=== PATIENT | male | born 1955 | race Caucasian/White ===

== ENCOUNTER 2018-05-08 12:27 | Outpatient (CLI) | payer MEDICARE, OTHER ==
--- NOTE | 2018-05-08 17:44 | ULT ---
SCROTAL ULTRASOUND: INDICATIONS: Right hemiscrotal/testicular pain, progressive in intensity. TECHNIQUE: Matias-scale and Doppler color-flow imaging performed with spectral analysis. FINDINGS: Doppler assessment reveals flow to each testis. There is a mild generalized heterogeneous echotextur e of the testicular parenchyma, although no discrete mass. There are cysts of each epididymis, moder ate to large in size on the left and punctate in size on the right. The demonstrated right testicula r length is 3.6 cm and on the left 2.9 cm. No significant hydrocele formation. IMPRESSION: 1. No sonographic evidence of testicular torsion or intratesticular mass. 2. Mild heterogeneity of the testicular parenchyma. This could relate to an inflammatory process, s uch as orchitis, although it is nonspecific. Recommend clinical correlation. If necessary, imaging followup may be obtained for continued assessment. POS: NII
== END 2018-05-08 12:28 | disposition home or self-care (01) ==
LOC: SCSULT 12:27
PROVIDERS: ATTEND Family Medicine
DX: N50.819 Testicular pain, unspecified (principal)
CPT/HCPCS: 76870; 93976

== ENCOUNTER 2018-09-15 10:31 | Outpatient (CLI) | payer MEDICARE, OTHER ==
--- NOTE | 2018-09-15 11:55 | ULT ---
ABDOMINAL AORTIC ULTRASOUND: History: 63-year-old male, wellness exam. Screening for abdominal aortic aneurysm. FINDINGS: There are some atherosclerotic plaque changes involving the aorta. Aneurysm dilatation of the infrare nal lower abdominal aorta measuring approximately 2.3 x 2.2 cm. The bifurcation appears unremarkable. Visualized proximal right and left common iliac arteries are unremarkable. IMPRESSION: Small focal aneurysm of the distal abdominal aorta. Abdominal aortic calcific plaque evidence for ath erosclerotic aortic vascular disease. POS: NII
== END 2018-09-15 10:32 | disposition home or self-care (01) ==
LOC: SCSULT 10:31
PROVIDERS: ATTEND Family Medicine
DX: Z13.6 Encounter for screening for cardiovascular disorders (principal); Z00.00 Encounter for general adult medical examination without abnormal findings; I71.4 Abdominal aortic aneurysm, without rupture; I70.0 Atherosclerosis of aorta
CPT/HCPCS: 76775

== ENCOUNTER 2018-09-20 07:49 | Outpatient (CLI) | payer MEDICARE, OTHER ==
--- NOTE | 2018-09-20 09:41 | CT ---
CT PULMONARY LUNG SCAN: HISTORY: Low dose screening. COMPARISON: Chest radiograph from 07/23/2015. FINDINGS: LUNGS PER SCREENING-SPECIFIC (LUNG-RADS): Negative. No suspicious pulmonary nodules. POTENTIALLY SIGNIFICANT INCIDENTALS (LUNG-RADS CATEGORY S): None. Negative. No incidental findings requiring urgent additional imaging evaluation. PULMONARY INCIDENTALS: There are scattered sub-4-mm pulmonary nodules, a few of which are calcified. There is a large bulla in the right upper lobe and left upper lobe. Mild to moderate paraseptal em physema. Scarring in the lung bases. OTHER INCIDENTALS: Small posterior fat-containing diaphragmatic hernia on the left. Low grade ather osclerotic plaque of the aorta. No mediastinal adenopathy. There are small, likely reactive mediastinal lymph nodes. No right kidney is appreciated on this examination. No suspicious osteolytic or osteoblastic lesions . No acute displaced rib fracture. IMPRESSION: 1. Lung-RADS category 2-Benign appearance or behavior. Recommended follow-up CT in one year. 2. Lung-RADS category S ( Potentially significant incidentals): Negative. No new or unknown finding s requiring urgent additional evaluation. POS: [facility]
== END 2018-09-20 07:50 | disposition home or self-care (01) ==
LOC: CT 07:49
PROVIDERS: ATTEND Family Medicine
DX: F17.210 Nicotine dependence, cigarettes, uncomplicated (principal); Z12.2 Encounter for screening for malignant neoplasm of respiratory organs; Z00.00 Encounter for general adult medical examination without abnormal findings
CPT/HCPCS: G0297

== ENCOUNTER 2019-11-21 09:48 | Outpatient (CLI) | payer MEDICARE, OTHER ==
--- NOTE | 2019-11-21 11:07 | CT ---
CT of [facility] without [id number] screening protocol: 11/21/2019 COMPARISON:09/20/2018 HISTORY:Nicotine dependence, current smoker with history of smoking for 40 years TECHNIQUE: Serial axial CT imaging at1.25 mm from thethoracic inlet through upper abdomen without con trast. Coronal and sagittal reformatted imaging obtained Findings:Noncontrast enhanced imaging limits assessment of the imaged viscera, vascular structures, a nd for lymphadenopathy. Scattered centrilobular and subpleural emphysematous changes are noted with a upper lobe predominance . Imaged upper abdomen demonstrates no acute findings. There is atherosclerotic calcification of the up per abdominal aorta. No pleural, pericardial, or mediastinal fluid. Scattered atherosclerotic calcification of the ascendi ng aorta and coronary arteries. No pneumothorax noted on either side. Left upper lobe: Stable 4 mm left upper lobe pulmonary nodule on axial image 97. Stable tiny 2-3 mm n odule on image 94. Left lower lobe: There is a inferior left lower lobe nodule measuring approximately 4 mm on axial inder ge 243, stable. Right upper lobe: Stable apical pleural thickening. There is a nodule within the medial aspect of the right upper lobe on axial image 111 measuring 6 mm, stable. There is a faint tiny nodule within the right upper lobe on axial image 1:30 measuring 2-3 mm, stable. There is a right upper lobe granul aly on image 101. Stable tiny nodule on axial image 152. Right middle lobe: 2 subcentimeter nodules are noted within the superior aspect of the right middle l obe measuring up to 4 mm, grossly unchanged. Right lower lobe: No discrete/dominant pulmonary parenchymal mass lesion or nodule noted. No endobronchial lesion evident. Review of the osseous structures demonstrates no worrisome findings. IMPRESSION: Lung RADS category 2-benign appearance or behavior. Recommend follow-up low-dose chest CT in one friedaa r.
== END 2019-11-21 09:49 | disposition home or self-care (01) ==
LOC: CT 09:48
PROVIDERS: ATTEND Family Medicine
DX: Z12.2 Encounter for screening for malignant neoplasm of respiratory organs (principal); F17.210 Nicotine dependence, cigarettes, uncomplicated
CPT/HCPCS: G0297

== ENCOUNTER 2021-02-23 15:59 | Outpatient (CLI) | payer MEDICARE, OTHER | END 2021-02-23 16:00 | disposition home or self-care (01) | LOC: BICCT 15:59 | PROVIDERS: ATTEND Family Medicine | DX: Z12.2 Encounter for screening for malignant neoplasm of respiratory organs (principal); F17.210 Nicotine dependence, cigarettes, uncomplicated | CPT/HCPCS: 71271 ==

== ENCOUNTER 2022-07-07 12:41 | Outpatient (CLI) | payer MEDICARE, OTHER | END 2022-07-07 12:42 | disposition home or self-care (01) | LOC: BICULT 12:41 | PROVIDERS: ATTEND Internal Medicine Nephrology | DX: N17.9 Acute kidney failure, unspecified (principal) | CPT/HCPCS: 76770 ==

== ENCOUNTER 2022-08-20 08:18 | Outpatient (CLI) | payer MEDICARE, OTHER | END 2022-08-20 08:19 | disposition home or self-care (01) | LOC: BICRAD 08:18 | PROVIDERS: ATTEND Chiropractor | DX: S01.83XA Puncture wound without foreign body of other part of head, initial encounter (principal) | CPT/HCPCS: 70150 ==